=== PATIENT | female | born 1955 | race Caucasian/White ===

== ENCOUNTER 2020-08-09 16:33 | Outpatient (REF) | payer BC, SELFPAY ==
--- NOTE | 2020-08-09 16:42 | MR_ITS ---
EXAMINATION: MR SHOULDER WITHOUT CONTRAST, RIGHT CLINICAL INFORMATION: Severe right shoulder pain. Question rotator cuff tear. COMPARISON: None. TECHNIQUE: MRI of the shoulder without contrast was performed on a high-field scanner. FINDINGS: ROTATOR CUFF: Full-thickness tear of the supraspinatus and anterior fibers infraspinatus. The tear measures approximately 3 cm AP. There is tendon retraction to the level of the glenoid. There is tendinosis of the residual fibers of infraspinatus, with a intrasubstance tear measuring 0.4 cm AP, 1.9 cm medial-lateral in the proximal tendon/myotendinous region. Teres minor is intact. Moderate subscapularis tendinosis with deep surface fraying/partial tearing. Zvur-qs-zgoaaiet supraspinatus atrophy. Mild infraspinatus atrophy. Mild atrophy of the superior subscapularis muscle. BICEPS: The intra-articular portion of the long head biceps tendon is not clearly visualized. There is thin caliber of the biceps tendon within the bicipital groove. Findings have the appearance of at least partial tearing is not a full-thickness tear.. CORACOACROMIAL ARCH: The undersurface of the acromion is curved with subacromial spurring. Moderate AC joint arthritis. LABRUM/CAPSULE: Small caliber, degenerative fraying/tearing of the superior labrum. Inferior capsule is intact. GLENOHUMERAL JOINT/MARROW: Superior subluxed humerus, abutting the acromion. Cartilage thinning of the mid humeral head, small osteophytes. Spurring of the greater tuberosity, with mild subcortical cyst/edema. Small effusion with mild synovitis/debris. IMPRESSION: 1. Full-thickness tear of the supraspinatus and anterior fibers infraspinatus measuring 3 cm AP, with tendon retraction to the level of the glenoid. Tendinosis of the residual fibers of the infraspinatus, with a 0.4 x 1.9 cm intrasubstance partial tear approximately/in the myotendinous region.. 2. Moderate subscapularis tendinosis with deep surface fraying/partial tearing. 3. Long head biceps tendon tear, at least partial-thickness in nature. Intra-articular portion is not well seen. 4. Superior labrum degenerative fraying/tearing, small caliber. 5. Mild glenohumeral joint arthritis. Small effusion with mild synovitis/debris. 6. Moderate AC joint arthritis.
== END 2020-08-09 16:34 | disposition home or self-care (01) ==
LOC: HO.MRI 16:33
PROVIDERS: Visit Provider Internal Medicine
DX: M25.511 Pain in right shoulder (principal)
CPT/HCPCS: 73221

== ENCOUNTER 2021-08-30 09:46 | Day surgery (SDC) | payer BC, SELFPAY ==
--- NOTE | 2021-08-29 09:01 | HO.ANESPROP2 ---
Documented by User: Talita Calhoun NP 08/29/21 09:03 HPI - Anesthesia Eval Consult details Narrative: 66yo F Upper Endoscopy and Colonoscopy with Antibiotics (s/p Total Shoulder Replacement) [facility] Past Medical History Medical History Chronic back pain Hypothyroidism Iron deficiency anemia Ovarian cyst Positive hepatitis C antibody test Family History Family History Brother Leukemia Mother Colon cancer Father Prostate cancer Surgical History Surgical History History of section History of hysterectomy History of removal of ovarian cyst History of right shoulder replacement Social History Social History Patient Tobacco Use Status: Former Tobacco user Quit Date: 12/2010 Tobacco use type: Cigarette Second Hand Smoke Exposure: No Use of substances other than those prescribed or required for medical reasons: No Are you DNR?: No Advance Directives: No Advance Directives Information Provided: Yes Advance Directives on File: No service: No Current occupational status: employed 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 [employer] Allergies Allergy/AdvReac Type Severity Reaction Status Date / Time No Known Allergies Allergy Unverified 07/19/20 14:46 [No Known Allergies*] Home Medications Medication Instructions Recorded Confirmed Last Taken Type atorvastatin 40 mg tablet 1 tab PO BEDTIME 08/29/21 08/29/21 Unknown History calcium carbonate 500 mg calcium 500 mg PO BID 08/29/21 08/29/21 Unknown History (1,250 mg) tablet (Calcium 500) carisoprodol 350 mg tablet 1 tab PO TID PRN 08/29/21 08/29/21 Unknown History citalopram 10 mg tablet 1 tab PO DAILY 08/29/21 08/29/21 Unknown History ferrous sulfate 325 mg (65 mg 1 tab PO BID 08/29/21 08/29/21 Unknown History iron) tablet,delayed release gabapentin 600 mg tablet 1 tab PO TID 08/29/21 08/29/21 Unknown History ibuprofen 800 mg tablet 1 tab PO TID 08/29/21 08/29/21 Unknown History oxycodone 5 mg tablet 1 tab PO QID PRN 08/29/21 08/29/21 Unknown History oxycodone myristate 18 mg capsule 18 mg PO BEDTIME 08/29/21 08/29/21 Unknown History sprinkle extended release 12hr(DON'T CRUSH) (Xtampza ER) zolpidem 10 mg tablet 1 tab PO BEDTIME PRN 08/29/21 08/29/21 Unknown History Exam Exam Date and Time: August 29, [id number] Assessment and Plan Assessment Anesthesia Assessment: Chart Reviewed Documented by User: Sue Rizzo MD 08/30/21 11:44 HPI - Anesthesia Eval Consult details Narrative: 66yo F forUpper Endoscopy and Colonoscopy with Antibiotics (s/p Total Shoulder Replacement) [facility] Past Medical History Medical History Chronic back pain Hypothyroidism Iron deficiency anemia Ovarian cyst Positive hepatitis C antibody test Family History Family History Brother Leukemia Mother Colon cancer Father Prostate cancer Family history of problems with anesthesia: No Surgical History Surgical History History of section History of hysterectomy History of removal of ovarian cyst History of right shoulder replacement History of Problems with Anesthesia: No Social History Social History Patient Tobacco Use Status: Former Tobacco user Quit Date: 12/2010 Tobacco use type: Cigarette Second Hand Smoke Exposure: No Use of substances other than those prescribed or required for medical reasons: No Are you DNR?: No Advance Directives: No Advance Directives Information Provided: Yes Advance Directives on File: No service: No Current occupational status: employed 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 [employer] Allergies Allergy/AdvReac Type Severity Reaction Status Date / Time No Known Allergies Allergy Unverified 07/19/20 14:46 [No Known Allergies*] Home Medications Medication Instructions Recorded Confirmed Last Taken Type atorvastatin 40 mg tablet 1 tab PO BEDTIME 08/29/21 08/29/21 Unknown History calcium carbonate 500 mg calcium 500 mg PO BID 08/29/21 08/29/21 Unknown History (1,250 mg) tablet (Calcium 500) carisoprodol 350 mg tablet 1 tab PO TID PRN 08/29/21 08/29/21 Unknown History citalopram 10 mg tablet 1 tab PO DAILY 08/29/21 08/29/21 Unknown History ferrous sulfate 325 mg (65 mg 1 tab PO BID 08/29/21 08/29/21 Unknown History iron) tablet,delayed release gabapentin 600 mg tablet 1 tab PO TID 08/29/21 08/29/21 Unknown History ibuprofen 800 mg tablet 1 tab PO TID 08/29/21 08/29/21 Unknown History oxycodone 5 mg tablet 1 tab PO QID PRN 08/29/21 08/29/21 Unknown History oxycodone myristate 18 mg capsule 18 mg PO BEDTIME 08/29/21 08/29/21 Unknown History sprinkle extended release 12hr(DON'T CRUSH) (Xtampza ER) zolpidem 10 mg tablet 1 tab PO BEDTIME PRN 08/29/21 08/29/21 Unknown History Exam Height,Weight and Vital Signs: Height 5 ft 3 in Weight 78.471 kg Vital Signs Temp Pulse Resp BP Pulse Ox 08/30/21 10:54 97.6 F 60 16 131/73 97 Airway Mallampati Class: II TM Dist: >3cm Neck ROM: Full Loose/Missing/Broken Teeth: Yes (Broken top left) Heart: RRR Lungs: CTAB Assessment and Plan Assessment Anesthesia Assessment: Anesthesia Plan Discussed Final Anesthetic Review Family History of Problems with Anesthesia: No History of Problems with Anesthesia: No NPO: Yes ASA Class: II Final Preanesthetic Review: No Changes in Pt Med Stat, Meds/Allgs Chart Reviewed, Consent Obtained/Reviewed and Anes Risks/Benef Reviewed Patient Risk: Low Procedure Risk: Low Assessment/Block/Sedation in SS: Assess/Block/Sedation-SS Anesthetic Plan Anesthetic Plan: MAC: Disposition: Standard PACU
[2021-08-30 10:32] VITALS: BMI 30.6
[2021-08-30 10:54] VITALS: BP 131/73; PULSE 60; RESP 16; TEMP 36.4; O2SAT 97
[2021-08-30] MEDS: Lactated Ringers 1,000 ML 100 ML IVCONT (10:55)
[2021-08-30] MEDS: Ampicillin Sodium 2 GM in 0.9 % Sodium Chloride 100 ML IV (10:56)
[2021-08-30] MEDS: Gentamicin Sulfate/NaCl 80 MG/100 ML PIGGYBACK 100 MG IV (11:05)
[2021-08-30 13:21] VITALS: BP 131/58; PULSE 64; RESP 17; TEMP 36.2; O2SAT 100
[2021-08-30 13:36] VITALS: BP 153/70; PULSE 58; RESP 18; TEMP 36.2; O2SAT 98
--- NOTE | 2021-08-30 16:53 | PM.OP ---
Brief Operative Note Date of Service: 08/30/21 Pre-op diagnosis: Iron deficiency anemia Post-op diagnosis: other (Hiatal hernia, Gastritis, R/O Celiac disease, Diverticulosis) Procedure: EGD with biopsies, Colonoscopy to the cecum and TI Surgeon: Robert Wynn Was an Fire Captain Marine used for this Procedure?: No Estimated blood loss (mL): 3.0 Pathology: other (A. Descending duodenum B. Gastric antrum C. EG Junction at 32cm) Condition: stable Disposition: PACU
--- NOTE | 2021-09-02 18:43 | OP_ITS ---
SURGEON: Robert Wynn MD INDICATIONS: The patient presents for evaluation of iron-deficiency anemia. Full consent has been obtained from her for this, including risks of bleeding and perforation. PREOPERATIVE DIAGNOSIS: Iron-deficiency anemia. POSTOPERATIVE DIAGNOSIS: PROCEDURE PERFORMED: Esophagogastroduodenoscopy with biopsies, and colonoscopy to the cecum and terminal ileum. ESTIMATED BLOOD LOSS: COMPLICATIONS: ANESTHESIA: Monitored anesthesia care. ASSISTANTS: SPECIMENS: POSTOPERATIVE DIAGNOSES: Iron-deficiency anemia, hiatal hernia, gastritis, rule out celiac disease, diverticulosis, internal hemorrhoids. DESCRIPTION OF PROCEDURE: The patient was placed in the left lateral decubitus position. The Olympus video gastroscope was passed in the posterior oropharynx and upper esophagus under direct vision. The scope was passed slowly into the distal esophagus. The gastroesophageal junction appeared at 32 cm. There was a very minimal friability, but no evidence of esophagitis nor Link's esophagus. The scope entered into the stomach. There was a moderate-sized hiatal hernia with some linear erosions within the gastric mucosa in the hiatal hernia pouch. There was no bleeding. The scope was advanced to pylorus and the duodenum was cannulated the descending portion. The duodenum including the bulb appeared normal without mass or ulceration. Biopsies were obtained at the second and third portions of duodenum. The scope was withdrawn back into the stomach. The gastric antrum and body had some areas of erythema and edema. There were no erosions or ulceration. There was good peristalsis. Biopsies were obtained from the gastric antrum. The scope was retroflexed visualizing the proximal stomach carefully, which revealed the previously mentioned gastritis, but no sign of any mass or ulceration. The scope was straightened and withdrawn back into the esophagus. I did obtain biopsies of the EG junction at 32 cm. Proximal to this, esophageal mucosa appeared normal. The scope was withdrawn from the patient. She was turned around for the colonoscopy. The digital rectal exam revealed no abnormalities. The Olympus video pediatric colonoscope was entered into the rectum and advanced to the cecum with the assistance of abdominal wall pressure. Once in the cecum, I did identify normal-appearing cecal pouch with appendiceal orifice and a normal-appearing ileocecal valve. The terminal ileum was cannulated and appeared normal. Scope was withdrawn back in the colon. The entire cecum and ileocecal valve appeared normal. The scope was then slowly withdrawn assessing all mucosal surfaces carefully. For the most part, preparation was excellent, although there were some areas of a thick liquid stool, which were irrigated and suctioned away as best as possible. I did not visualize any sign of polyps, colitis, nor angiodysplasia. There was a moderate amount of sigmoid diverticulosis. In the rectum, scope was retroflexed visualizing internal hemorrhoids, but no other pathology. The rectal mucosa appeared normal. The scope was straightened out and withdrawn from the patient. She tolerated the procedure well and was returned to the recovery area in stable condition. IMPRESSION: 1. Hiatal hernia with associated gastritis in the hiatal hernia pouch and some evidence of reflux. 2. Gastritis. 3. Rule out celiac disease. 4. Diverticulosis. 5. Internal hemorrhoids. PLAN: The results of the biopsies will be checked. She was advised to resume her iron twice a day. I did advise her to try to stay off all aspirin and NSAID products long-term. Given today's findings, I suspect her anemia is in relation to some upper GI chronic blood loss. She has been using NSAIDs regularly and occasional aspirin as well. She did receive preprocedure antibiotics for prophylaxis in regard to a recent shoulder replacement and was given a prescription to use amoxicillin later today as well. I did give her a prescription to start omeprazole 20 mg daily as well. She was advised to see me in 2 to 3 months. We can follow her blood count and if indeed she remains anemic, she would then most likely require a small bowel video capsule study. This has been discussed with her family. MD LESLY Bay/JOEL / [phone]
== END 2021-08-30 14:15 | disposition home or self-care (01) ==
PROVIDERS: PCP Internal Medicine; Visit Provider Internal Medicine
PROC: (CPT 45378; principal; 2021-08-30 11:30)
DX: D50.9 Iron deficiency anemia, unspecified (principal); Z80.0 Family history of malignant neoplasm of digestive organs; K57.30 Diverticulosis of large intestine without perforation or abscess without bleeding; K64.8 Other hemorrhoids; K29.50 Unspecified chronic gastritis without bleeding; K44.9 Diaphragmatic hernia without obstruction or gangrene; G89.29 Other chronic pain; M54.9 Dorsalgia, unspecified; E03.9 Hypothyroidism, unspecified; Z79.899 Other long term (current) drug therapy; Z79.82 Long term (current) use of aspirin; Z79.1 Long term (current) use of non-steroidal anti-inflammatories (NSAID)
CPT/HCPCS: 45378; 43239; 88305; 88342; J0290; J1580; J2250

== ENCOUNTER → 2022-01-14 11:30 | Outpatient (BNVA) | payer BC, SELFPAY | PROVIDERS: PCP Internal Medicine; Referring Provider Internal Medicine; Visit Provider Surgery | DX: K43.9 Ventral hernia without obstruction or gangrene (principal); Z79.899 Other long term (current) drug therapy | CPT/HCPCS: 99202 ==

== ENCOUNTER 2022-02-24 06:00 | Day surgery (SDC) | payer BC, SELFPAY ==
[2022-02-18 09:54] VITALS: BMI 31.6
[2022-02-24] VITALS (8 sets, daily range): BP systolic 152–168; BP diastolic 72–84; PULSE 50–59; RESP 16–18; TEMP 36–36.6; O2SAT 95–100
[2022-02-24] MEDS: Lactated Ringers 1,000 ML 100 ML IVCONT (06:38)
--- NOTE | 2022-02-24 07:23 | P.CONAN_ITS ---
HPI - Anesthesia Eval Consult details Narrative: 66 F for hernia repair chronic back pain with radiation to LE RUE pain . PMF Active Problems Active Problems: All Active Problems (Updated 02/18/22 @ 09:44 by Ghazal Kate RN) Ventral hernia (Acute) Past Medical History Medical History (Updated 02/24/22 @ 08:14 by Maximiliano Chapin MD) Chronic back pain Elevated cholesterol GERD (gastroesophageal reflux disease) Hypothyroidism Iron deficiency anemia Ovarian cyst Positive hepatitis C antibody test Ventral hernia Family History Family History Brother Leukemia Mother Colon cancer Father Prostate cancer Family history of problems with anesthesia: No Surgical History Surgical History (Updated 02/24/22 @ 08:14 by Maximiliano Chapin MD) H/O colonoscopy History of section History of esophagogastroduodenoscopy (EGD) History of hysterectomy History of removal of ovarian cyst History of right shoulder replacement Hx of left breast biopsy S/P ventral herniorrhaphy (02/24/22) History of Problems with Anesthesia: No Social History Social History Are you a primary manager wound care to a significant other at home: No Do you presently have visiting nurse or other home services: No Patient Tobacco Use Status: Former Tobacco user Quit Date: 2010 Tobacco use type: Cigarette Second Hand Smoke Exposure: No Use of substances other than those prescribed or required for medical reasons: No Are you DNR?: No Advance Directives Information Provided: Yes (brochure mailed) Advance Directives on File: No Recently lost weight without trying: No Eating poorly because of decreased appetite: No Nutrition Risks: No Nutritional Risk service: No Current occupational status: employed 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 Allergies Allergy/AdvReac Type Severity Reaction Status Date / Time No Known Allergies Allergy Verified 02/24/22 06:13 [No Known Allergies*] Active Medications: Current Medications Lactated Ringer's (Lr) 1,000 mls @ 100 mls/hr IVCONT .Q10H JAUN Last Admin: 02/24/22 06:38 Dose: 100 mls/hr Documented by: Home Medications Medication Instructions Recorded Confirmed Last Taken Type atorvastatin 40 mg tablet 1 tab PO BEDTIME 08/29/21 02/18/22 Unknown History calcium carbonate 500 mg calcium 500 mg PO BID 08/29/21 02/18/22 Unknown History (1,250 mg) tablet (Calcium 500) carisoprodol 350 mg tablet 1 tab PO TID PRN 08/29/21 02/18/22 Unknown History citalopram 10 mg tablet 1 tab PO DAILY 08/29/21 02/18/22 Unknown History ferrous sulfate 325 mg (65 mg 1 tab PO BID 08/29/21 02/18/22 Unknown History iron) tablet,delayed release gabapentin 600 mg tablet 1 tab PO TID 08/29/21 02/18/22 Unknown History oxycodone 5 mg tablet 1 tab PO QID 08/29/21 02/18/22 02/24/22 History oxycodone myristate 18 mg capsule 18 mg PO BEDTIME 08/29/21 02/18/22 Unknown History sprinkle extended release 12hr(DON'T CRUSH) (Xtampza ER) zolpidem 10 mg tablet 1 tab PO BEDTIME PRN 08/29/21 02/18/22 Unknown History omeprazole 20 mg capsule,delayed 20 mg PO DAILY 01/14/22 02/18/22 Unknown History release acetaminophen 650 mg 650 mg PO Q8H PRN 02/18/22 02/18/22 Unknown History tablet,extended release Exam Exam Date and Time: February 24, 2022722 Height,Weight and Vital Signs: Height 5 ft 3 in Weight 81.193 kg Last Vital Signs Temp 96.8 F 02/24/22 06:22 Pulse 59 02/24/22 06:22 Resp 16 02/24/22 06:22 BP 162/76 H 02/24/22 06:22 Pulse Ox 97 02/24/22 06:22 Airway Mallampati Class: III TM Dist: >3cm Neck ROM: Full Loose/Missing/Broken Teeth: Yes (Chipped ) Heart: S1 S2 Lungs: b/l breath sounds Assessment and Plan Assessment Anesthesia Assessment: Anesthesia Plan Discussed and Chart Reviewed Final Anesthetic Review Family History of Problems with Anesthesia: No History of Problems with Anesthesia: No NPO: Yes ASA Class: II Final Preanesthetic Review: No Changes in Pt Med Stat, Meds/Allgs Chart Reviewed, Consent Obtained/Reviewed and Anes Risks/Benef Reviewed Patient Risk: Intermediate Procedure Risk: Intermediate Anesthetic Plan Anesthetic Plan: GA Disposition: Standard PACU
--- NOTE | 2022-02-24 07:29 | MHC.SHP ---
Pre-Procedural Eval Section A Date of Service: 02/24/22 The patient is an INPATIENT: No Changes since office visit: Yes Patient answered all questions; No Cold of Flu in the past 2 weeks, No New Medical Problems and No Changes in Medication The History & Physical has been completed within 30 days and I have reviewed it.: Yes Section B Chief Complaint: Ventral hernia without obstruction or gangrene Allergies: Allergies Allergy/AdvReac Type Severity Reaction Status Date / Time No Known Allergies Allergy Verified 02/24/22 06:13 [No Known Allergies*] Plan Diagnosis/Plan: Unchanged I have reviewed the history and physical and performed a pertinent physical examination on my patient. No changes have occurred unless specified.
--- NOTE | 2022-02-24 08:16 | P.OP_ITS ---
Operative Note Operative Note Date of Service: 02/24/22 Narrative: Preoperative diagnosis:Ventral hernia Postoperative diagnosis: same Procedure: repair of ventral hernia with mesh Surgeon: Maximiliano Chapin MD [employer]urb[employer] Electrical Engineer: Bushra Silver PA-C Anesthesia: general LMA Indications for procedure: 66-year-old female patient with a painful lump in the upper abdomen just above the umbilicus consistent with a ventral hernia. Operative findings: 1.5 cm ventral hernia located in the upper midline repaired with a 4.3 cm Ventralex mesh. Specimen: None Estimated blood loss: 2 cc Complications: None Procedure details: Patient was brought to the OR and placed in a supine pos ition. After administering general anesthesia the patient's abdomen was prepped with ChloraPrep and draped in a sterile fashion. A surgical time-out was called the consent confirmed. Patient received preoperative antibiotics and Venodyne boots were in place. Local anesthesia consisting of 0.5% Sensorcaine was infiltrated in the upper midline just above the umbilicus. A 4 cm incision was then made with a scalpel over the palpable lump. This carried out through subcutaneous tissue, and up to the hernia sac. The hernia sac was then dissected circumferentially. A defect measuring approximately 1.5 cm was identified. The hernia contents were then reduced into the abdominal cavity. A preperitoneal space was then dissected circumferentially using both blunt dissection and electrocautery. A 4.3 cm round Ventralex mesh was then obtained. This was placed in the preperitoneal space. 5.5 mL of Zenrelef was then infiltrated over the mesh. The mesh was then secured to the fascia using [id number] 1 Tycron suture. Fascia was closed over the mesh using additional 1 Tycron sutures. Wounds were then irrigated with saline solution and suctioned dry. Additional 5 mL of Zenrelef was then applied over the fascia. Subcutaneous tissue was then reapproximated using interrupted 3-0 Polysorb sutures. Dermis was reapproximated using interrupted 3-0 Polysorb sutures. Skin was closed using a running subcuticular 4-0 Polysorb suture. Steri-Strips, 2 x 2 gauze, and Tegaderm were then applied. The patient tolerated the procedure well. Sponge, instrument, and needle counts reported as correct. Patient was transferred to PACU in stable condition.
[2022-02-24] MEDS: fentaNYL citrate/PF 100 MCG/2 ML VIAL 25 MCG IVPUSH ×2 (08:45→08:50)
[2022-02-24] MEDS: oxyCODONE HCl Immed Release 5 MG TABLET PO (08:45)
[2022-02-24] MEDS: Acetaminophen 325 MG TABLET 650 MG PO (08:45)
== END 2022-02-24 10:03 | disposition home or self-care (01) ==
PROVIDERS: PCP Internal Medicine; Visit Provider Surgery
PROC: (CPT 49560; principal; 2022-02-24 07:30)
DX: K43.9 Ventral hernia without obstruction or gangrene (principal); E03.9 Hypothyroidism, unspecified; D50.9 Iron deficiency anemia, unspecified; G89.29 Other chronic pain; M54.9 Dorsalgia, unspecified; Z79.1 Long term (current) use of non-steroidal anti-inflammatories (NSAID); Z79.899 Other long term (current) drug therapy; Z90.710 Acquired absence of both cervix and uterus; Z96.611 Presence of right artificial shoulder joint; Z87.891 Personal history of nicotine dependence
CPT/HCPCS: 49560; 49568; C1781; C9399; J0690; J1100; J2250; J2405; J2795; J3010

== ENCOUNTER → 2022-03-18 14:40 | Outpatient (BNVA) | payer BC, SELFPAY | PROVIDERS: PCP Internal Medicine; Referring Provider Internal Medicine; Visit Provider Surgery | DX: K43.9 Ventral hernia without obstruction or gangrene (principal) ==

== ENCOUNTER 2023-07-28 09:09 | Outpatient (REF) | payer BC, SELFPAY ==
--- NOTE | ~2023-07-28 | MR_ITS ---
EXAMINATION: MR LUMBAR SPINE WITHOUT CONTRAST CLINICAL INFORMATION: Left leg radiculopathy and low back pain. COMPARISON: MRI dated 04/23/2020. TECHNIQUE: Multiplanar, multisequence imaging was obtained. FINDINGS: VERTEBRAL BODIES AND PARASPINAL STRUCTURES: Advanced degenerative disc disease has progressed at the L2-L3 level with further disc space narrowing and a stable retrosubluxation. Severe loss of disc height again evident at the L5-S1 level with endplate spurring and a posterior subluxation. There is a mild anterolisthesis at the L4-L5 level. No compression fractures are seen. The marrow signal is otherwise within normal limits. The paraspinal soft tissues are unremarkable. The imaged bony pelvis appears normal. Sigmoid colonic diverticulosis noted. CONUS MEDULLARIS AND CAUDA EQUINE: The distal cord, conus tip, and cauda equina nerve roots appear normal. Epidural lipomatosis contributes to varying degrees of thecal sac distortion throughout the lumbar spine. SPINAL LEVELS: L1-L2: No significant disc pathology. Mild facet arthrosis. No central canal stenosis or foraminal narrowing. L2-L3: Advanced degenerative disc disease with a retrosubluxation and diffuse disc bulge. Kzgo-kt-xglhrnif facet arthropathy is stable. Stable cpxs-mi-wuhwzffi central canal stenosis. Dorsal epidural fat prominence results in a worsened degree of moderate thecal sac distortion. L3-L4: Mild posterior subluxation and broad-based disc bulge noted with dorsal epidural fat prominence and hypertrophic facet arthropathy. Mild central canal stenosis with qzdj-au-nzlevafd thecal sac distortion. Posterolateral bulging disc results in stable ujgz-hq-dlymdivb foraminal encroachment. Previous small right paracentral disc protrusion has partially resorbed. Left posterolateral disc protrusion mildly impresses upon the extraforaminal left L3 nerve root. L4-L5: Mild anterolisthesis and moderate facet arthropathy resulting in moderate central canal stenosis with xcej-rn-kgptayoc thecal sac distortion. Mild right foraminal narrowing and unroofed disc bulge. L5-S1: Severe loss of disc height and retrosubluxation with endplate spurring and a broad-based disc bulge. Central disc protrusion has mildly increased in size with mass effect upon the right S1 nerve root. Hypertrophic facet arthropathy without central canal stenosis. Severe left foraminal narrowing again evident with bulging disc and osseous spurring distorting the exiting left L5 nerve root. MR/MR lumbar spine wo con IMPRESSION: 1. Progressed degenerative disc disease at the L2-L3 level with mild to moderate central canal stenosis and worsened dorsal epidural fat prominence resulting in increased moderate thecal sac distortion. 2. Previous small right paracentral disc protrusion at the L3-L4 level has partially resorbed. Stable mild central canal stenosis and qngy-ou-dpnsqfjn thecal sac distortion, in part due to epidural lipomatosis superimposed upon spondylosis. A focal left posterolateral disc protrusion mildly impresses upon the extraforaminal left L3 nerve root. 3. Stable moderate central canal stenosis at the L4-L5 level with a mild anterolisthesis and moderate facet arthropathy. 4. Central disc protrusion at the L5-S1 level has mildly increased in size with mass effect upon the right S1 nerve root. Stable severe left foraminal narrowing with distortion of the left L5 nerve root.
== END 2023-07-28 09:10 | disposition home or self-care (01) ==
LOC: HO.MRI 09:09
PROVIDERS: Visit Provider Internal Medicine
DX: M54.16 Radiculopathy, lumbar region (principal)
CPT/HCPCS: 72148

== ENCOUNTER 2023-10-30 08:23 | Outpatient (REF) | payer BC, SELFPAY ==
--- NOTE | ~2023-10-30 | MM_ITS ---
EXAMINATION: MM SCREENING DIGITAL BREAST TOMOSYNTHESIS, BILATERAL CLINICAL INFORMATION: Screening. Asymptomatic. Remote history of breast biopsy. COMPARISON: Mammography 11/13/2017, 08/06/2016, 03/14/2015, 03/06/2015. TECHNIQUE: Digital breast tomosynthesis is performed in both the craniocaudal and mediolateral oblique views along with computer-aided detection (CAD). Synthesized 2D images are generated from the tomosynthesis. FINDINGS: There are scattered areas of fibroglandular density (ACR BI-RADS breast composition Category b). There are prior benign type calcifications scattered in both breasts, benign. There are no suspicious masses, suspicious grouped calcifications, or areas of architectural distortion in either breast. The parenchymal pattern is stable from prior exams. MM/MM tomosynthesis screening BI IMPRESSION: No mammographic evidence of malignancy. ASSESSMENT: BI-RADS BI-RADS 2 - Benign Findings RECOMMENDATION: Routine annual mammography screening. 1 year F/U This examination should not preclude the clinical evaluation of a suspicious palpable abnormality. This patient's information was entered into a reminder system with a target due date for their next mammogram.
== END 2023-10-30 08:24 | disposition home or self-care (01) ==
LOC: HO.MAMMO 08:23
PROVIDERS: PCP Internal Medicine; Visit Provider Internal Medicine
DX: Z12.31 Encounter for screening mammogram for malignant neoplasm of breast (principal)
CPT/HCPCS: 77063; 77067

== ENCOUNTER → 2023-10-30 08:30 | Outpatient (BNV) | payer BC, SELFPAY | PROVIDERS: PCP Internal Medicine; Visit Provider Radiology Diagnostic Radiology | DX: Z12.31 Encounter for screening mammogram for malignant neoplasm of breast (principal) | CPT/HCPCS: 77063; 77067 ==

== ENCOUNTER 2023-11-04 11:13 | Outpatient (REF) | payer BC, SELFPAY ==
[2023-11-04 13:15] LABS: MANUAL DIFF FLAG NO
[2023-11-04 13:34] LABS: Basophils Absolute Auto 0.1 X10*3/uL (0.0-0.2); Basophils Percent Auto 0.7 % (0-2); Eosinophils Absolute Auto 0.3 X10*3/uL (0.0-0.4); Hematocrit 26.4 % (37.0-47.0); Hemoglobin 7.7 g/dl (12.0-16.0); Imm Gran Abs Auto 0.02 X10*3/uL (0.00-0.03); Imm Gran Pct Auto 0.3 % (0.0-0.4); Lymphocytes Absolute Auto 2.6 X10*3/uL (1.2-4.9); Lymphocytes Percent Auto 37.5 % (20-40); Mean Corpuscular HGB Conc 29.2 g/dl (31.0-35.0); Mean Corpuscular Hemoglobin 22.6 pg (27.0-33.0); Mean Corpuscular Volume 77.6 fL (80.0-98.0); Monocytes Absolute Auto 0.7 X10*3/uL (0.1-1.2); Monocytes Percent Auto 9.5 % (2-11); Neutrophils Absolute Auto 3.4 x10*3/uL (2.0-8.3); Platelet Count 350 X10*3/uL (160-400); Red Cell Distribution Width 15.2 % (11.0-16.0)
== END 2023-11-04 11:14 | disposition home or self-care (01) ==
LOC: HO.HMGCLDS 11:13
PROVIDERS: PCP Internal Medicine; Visit Provider Internal Medicine
DX: R53.83 Other fatigue (principal)
CPT/HCPCS: 36415; 85025

== ENCOUNTER 2023-12-04 15:37 | Outpatient (REF) | payer BC, SELFPAY ==
[2023-12-04 15:49] LABS: MANUAL DIFF FLAG NO
[2023-12-04 15:54] LABS: Basophils Percent Auto 0.4 % (0-2); Eosinophils Absolute Auto 0.2 X10*3/uL (0.0-0.4); Eosinophils Percent Auto 2.9 % (0-4); Hemoglobin 10.8 g/dl (12.0-16.0); Imm Gran Abs Auto 0.01 X10*3/uL (0.00-0.03); Imm Gran Pct Auto 0.2 % (0.0-0.4); Lymphocytes Absolute Auto 1.8 X10*3/uL (1.2-4.9); Mean Corpuscular Hemoglobin 25.6 pg (27.0-33.0); Mean Corpuscular Volume 85.3 fL (80.0-98.0); Mean Platelet Volume 10.4 fL (9.4-12.3); Monocytes Absolute Auto 0.5 X10*3/uL (0.1-1.2); Neutrophils Absolute Auto 3.1 x10*3/uL (2.0-8.3); Neutrophils Percent Auto 55.5 % (45-73); Platelet Count 346 X10*3/uL (160-400); Red Blood Count 4.22 X10*6/uL (4.20-5.50); White Blood Count 5.6 X10*3/uL (4.8-10.8)
[2023-12-04 16:56] LABS: Iron 81 mcg/dL (30-160); Percent Iron Saturation 23 % (15-50); Total Iron Binding Capacity 345 mcg/dL (228-428); Unsaturated Iron Binding 264 ug/dL
[2023-12-04 16:59] LABS: Ferritin 41 ng/mL (10-250)
== END 2023-12-04 15:38 | disposition home or self-care (01) ==
LOC: HO.LAB 15:37
PROVIDERS: PCP Internal Medicine; Visit Provider Internal Medicine
DX: D50.9 Iron deficiency anemia, unspecified (principal)
CPT/HCPCS: 36415; 82728; 83540; 85025

== ENCOUNTER 2024-11-08 14:28 | Outpatient (REF) | payer MEDICARE, SELFPAY ==
--- NOTE | ~2024-11-08 | MM_ITS ---
EXAMINATION: MM SCREENING DIGITAL BREAST TOMOSYNTHESIS, BILATERAL CLINICAL INFORMATION: Screening. Asymptomatic. COMPARISON: Mammography: Comparison is made with available priors TECHNIQUE: Digital breast mammography with tomosynthesis is performed in both the craniocaudal and mediolateral oblique views along with computer-aided detection (CAD). FINDINGS: There are scattered areas of fibroglandular density (ACR BI-RADS breast composition Category b). Left excisional biopsy. There are no significant masses, abnormal calcifications, or other abnormalities. MM/MM tomosynthesis screening BI IMPRESSION: No mammographic evidence of malignancy. ASSESSMENT: BI-RADS BI-RADS 2 - Benign Findings RECOMMENDATION: Routine annual mammography screening. 1 year F/U This examination should not preclude the clinical evaluation of a suspicious palpable abnormality. This patient's information was entered into a reminder system with a target due date for their next mammogram. Electronically signed by: Marion Rutherford DO 11/08/2024 04:00 PM [facility]
== END 2024-11-08 14:29 | disposition home or self-care (01) ==
LOC: HO.MAMMO 14:28
PROVIDERS: PCP Internal Medicine; Visit Provider Internal Medicine
DX: Z12.31 Encounter for screening mammogram for malignant neoplasm of breast (principal)
CPT/HCPCS: 77063; 77067

== ENCOUNTER → 2024-11-08 14:30 | Outpatient (BNV) | payer MEDICARE, SELFPAY | PROVIDERS: PCP Internal Medicine; Visit Provider Internal Medicine | DX: Z12.31 Encounter for screening mammogram for malignant neoplasm of breast (principal) | CPT/HCPCS: 77063; 77067 ==